=== PATIENT | female | born 1995 | race Caucasian/White ===

== ENCOUNTER 2017-10-15 14:05 | Emergency (ER) | payer SELFPAY ==
[~2017-10-15] VITALS: Ht 165.1 cm; Wt 158.0 kg
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
[2017-10-15] MEDS ORDERED: NAPR-683 PO (15:32)
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
[2017-10-15 15:43] VITALS: BP 123/66
== END 2017-10-15 15:44 | disposition home or self-care (01) ==
LOC: ER 14:05
DX: S20.211A Contusion of right front wall of thorax, initial encounter (principal); S20.02XA Contusion of left breast, initial encounter; F41.9 Anxiety disorder, unspecified; V49.9XXA Car occupant (driver) (passenger) injured in unspecified traffic accident, initial encounter; Y93.89 Activity, other specified; Y92.488 Other paved roadways as the place of occurrence of the external cause; Y99.8 Other external cause status
CPT/HCPCS: 71120; 99284